=== PATIENT | male | born 1995 | race Caucasian/White ===

== ENCOUNTER → 2020-02-04 | Outpatient (CLI) | payer BC ==
--- NOTE | 2020-02-04 12:53 | RAD ---
Examination: US DPLX VENOUS EXTREMITY LOWER RT History: Reason: RT LEG PAIN / Comparison/Correlation: None Findings: Duplex right lower extremity venous ultrasound examination was performed. Compression augme ntation are utilized. Right common femoral vein, superficial femoral vein, saphenous vein junction, and visualized profunda femoris vein are normal. Partially occlusive right popliteal vein thrombus noted. Occlusive posterior tibial venous thrombus n oted. Impression: Deep venous thrombus involving the right popliteal and posterior tibial veins. Occlusive posterior ti bial vein thrombus. Referring physician's office was informed by the technologist who performed the exam on 02/04/2020 at approximately 12:45 PM. Electronically signed by: Carroll Hauser MD (02/04/2020 12:50 PM) [id number]
--- NOTE | 2020-02-04 17:05 | RAD ---
EXAM: Right knee, 3 views; right tibia and fibula, 2 views. HISTORY: Pain and swelling COMPARISON: None. FINDINGS: 3 views of the right knee and 2 views of the tibia and fibula are obtained. There is no fra cture, dislocation or subluxation. There is no lytic or sclerotic osseous lesion. There is no periost eal reaction. There is no significant knee effusion. IMPRESSION: No acute osseous finding. Electronically signed by: Evie Ornelas MD (02/04/2020 5:03 PM) [id number]
== END ==
LOC: US 12:06
PROVIDERS: ATTEND Nurse Practitioner Adult Health
DX: I82.431 Acute embolism and thrombosis of right popliteal vein (principal); I82.441 Acute embolism and thrombosis of right tibial vein
CPT/HCPCS: 73562; 73590; 93971

== ENCOUNTER → 2020-03-26 | Outpatient (CLI) | payer BC ==
--- NOTE | 2020-03-26 12:01 | RAD ---
EXAM: Right lower extremity venous Doppler. HISTORY: Right lower extremity pain/swelling. Known deep venous thrombosis. COMPARISON: 02/04/2020. FINDINGS: Grayscale and Doppler analysis of the right lower extremity deep venous system was performe d with graded compression and augmentation. The common femoral, greater saphenous, superficial femora l, popliteal and calf veins were assessed. Chronic nonocclusive thrombus is noted in the right popliteal, peroneal and posterior tibial veins. T his is improved from the prior study within the posterior tibial veins were occluded. IMPRESSION: 1. Previously noted right popliteal, peroneal and posterior tibial deep venous thrombosis has improve d, and is now nonocclusive throughout. Electronically signed by: Sekou Villanueva MD (03/26/2020 11:58 AM) [id number]
== END ==
LOC: US 10:55
PROVIDERS: ATTEND Family Medicine
DX: I82.441 Acute embolism and thrombosis of right tibial vein (principal); M79.661 Pain in right lower leg
CPT/HCPCS: 93971

== ENCOUNTER → 2020-08-13 | Outpatient (CLI) | payer BC ==
--- NOTE | 2020-08-13 13:38 | RAD ---
US DPLX VENOUS EXTREMITY LOWER RT History: Reason: 6 MONTH F/U DVT / Spl. Instructions: / History: Comparison: March 26, 2020 Discussion: Multiple longitudinal and transverse high resolution real-time images of the venous system of right l ower extremity were obtained with color and Doppler sampling. Nonocclusive eccentric thrombus within the right popliteal and posterior tibial vein, similar compare d to prior. Patent additional veins. Impression: 1. Nonocclusive eccentric thrombus within the right popliteal and posterior tibial vein, similar com pared to prior. Electronically signed by: Ruben Paul DO (08/13/2020 1:36 PM) [id number]
== END ==
LOC: US 12:50
PROVIDERS: ATTEND Family Medicine
DX: I82.431 Acute embolism and thrombosis of right popliteal vein (principal); I82.441 Acute embolism and thrombosis of right tibial vein
CPT/HCPCS: 93971

== ENCOUNTER → 2020-10-20 | Outpatient (CLI) | payer BC ==
--- NOTE | 2020-10-20 08:31 | RAD ---
INDICATION: Reason: F/U DVT / Spl. Instructions: / History: COMPARISON: August 13, 2020 TECHNIQUE: Grayscale, color and doppler ultrasound images were obtained of the right lower extremity venous vasculature. RIGHT: Repeat demonstration of thrombus within the right popliteal and posterior tibial vein. No thrombus in common femoral or superficial femoral vein. IMPRESSION: * Persistent thrombus within the right popliteal and posterior tibial vein similar to prior. Electronically signed by: Harry Garcia MD (10/20/2020 8:29 AM) [id number]
== END ==
LOC: US 07:52
PROVIDERS: ATTEND Family Medicine
DX: I82.431 Acute embolism and thrombosis of right popliteal vein (principal); I82.441 Acute embolism and thrombosis of right tibial vein
CPT/HCPCS: 93971